=== PATIENT | female | born 1950 | race Caucasian/White ===

== ENCOUNTER 2018-04-09 09:36 | Day surgery (SDC) | payer MEDICARE, OTHER, MEDICAID ==
[~2018-04-09 09:36] MED LIST: LIDOCAINE 2% (SDV) 5 ML INJ; PROPOFOL 200 MG INJ
[2018-04-09] MEDS ORDERED: PROPOFOL 60 ML (12:02)
== END 2018-04-09 13:01 | disposition home or self-care (01) ==
LOC: GIL 09:36
DX: R19.4 Change in bowel habit (principal); K57.90 Diverticulosis of intestine, part unspecified, without perforation or abscess without bleeding; K64.8 Other hemorrhoids; E78.5 Hyperlipidemia, unspecified
CPT/HCPCS: 43239; 88305